=== PATIENT | male | born 1940 | race Caucasian/White ===

== ENCOUNTER 2017-02-05 16:59 | Emergency (ER) | payer MEDICARE, OTHER ==
[~2017-02-05 16:59] MED LIST: ACET500CAP PO; ASAB PO; BUM1 PO; C1 PO; CARD60 PO; CEFT5 PO; COMBIVENT RESPIM4 GM INH; COREG12 PO; COREG25 PO; COUMADIN3 MG PO; COUMADIN4 MG PO; COZ25 PO; DORYX100 MG PO; DUONEB INH; GLUCOTROL5 PO; KLOR-CON 1010 MEQ PO; L40 PO; LAN125 PO; LEVAQUIN750 MG PO; LEVEMIR SC; LIPITOR40 PO; MCZ125 PO; NEXIUM40 PO; NITROSTAT0.4 MG SL; NORCO1 TAB PO; P20 PO; POT GLUCONAT550 M1 PO; PRIN5 PO; XARELTO20 MG PO; ZITH250 PO
[2017-02-05 19:33] LABS: ASCORBIC ACID (UR NOT ORDER) NEG (NEG); BILIRUBIN, URINE NEGATIVE (NEG); ER URINALYSIS TAT 0 Hrs 13 Mins; KETONE, URINE NEGATIVE (NEG); LEUKOCYTE ESTERASE(NOT OR TRACE (NEG); NITRITE (URINE) NEG (NEG); WBC (NOT ORDERED) (RFLEX) 1 (0-5)
[2017-02-05 19:39] LABS: BASOPHILS 0.3 %; BASOPHILS ABSOLUTE 0.03 10/3/uL (0.0-0.16); EOSINOPHILS 1.4 %; EOSINOPHILS ABSOLUTE 0.14 10/3/uL (0.0-0.53); ER CBC TAT 0 Hrs 19 Mins; HEMATOCRIT 40.9 % (40.0-51.0); HEMOGLOBIN 14.6 g/dL (13.6-17.8); IMMATURE GRANULOCYTES 0.2 %; IMMATURE GRANULOCYTES ABSOLUTE 0.02 10/3/uL (0.0-0.11); LYMPHOCYTES 21.5 %; LYMPHOCYTES ABSOLUTE 2.11 10/3/uL (0.67-4.30); MEAN CORPUS HGB CONC 35.7 g/dL (32.0-36.0); MEAN CORPUSCULAR HEMOGLOB 31.9 pg (26.0-34.0); MEAN PLATELET VOLUME 10.9 fL (9.2-13.0); MONOCYTES 11.2 %; NEUTROPHILS 65.4 %; NEUTROPHILS ABSOLUTE 6.42 10/3/uL (2.02-8.40); PLATELET COUNT 177 10/3/uL (150-400); RBC DISTRIBUTION WIDTH 12.7 % (12.0-16.0); RED CELL COUNT 4.57 10/6/uL (4.7-6.1); WHITE BLOOD CELLS 9.8 10/3/uL (4.5-10.5)
[2017-02-05 19:40] LABS: MANUAL DIFF NO %; MEAN CORPUSCULAR VOLUME 89.5 fL (80-100)
[2017-02-05 19:45] LABS: BUN (BLOOD UREA NITROGEN) 14 MG/DL (6-23); CALCIUM, SERUM 8.6 MG/DL (8.5-10.4); CHLORIDE, SERUM 96 MMOL/L (96-112); CO2 (CARBON DIOXIDE) 33 MMOL/L (24-34); GFR AFRICAN AMERICAN 56 ML/MIN (>=60); GFR NON AFRICAN AMERICAN 48 ML/MIN (>=60); GLUCOSE, SERUM 320 MG/DL (60-99); POTASSIUM, SERUM 4.3 MMOL/L (3.5-5.3); SODIUM, SERUM 137 MMOL/L (135-148); TROPONIN I 0.05 NG/ML (<0.05)
== END 2017-02-05 21:52 | disposition home or self-care (01) ==
LOC: ER 16:59
PROVIDERS: Emergency Medicine
DX: E11.65 Type 2 diabetes mellitus with hyperglycemia (principal); N39.0 Urinary tract infection, site not specified; R79.89 Other specified abnormal findings of blood chemistry; J44.9 Chronic obstructive pulmonary disease, unspecified; I12.9 Hypertensive chronic kidney disease with stage 1 through stage 4 chronic kidney disease, or unspecified chronic kidney disease; N18.9 Chronic kidney disease, unspecified; I48.91 Unspecified atrial fibrillation; K21.9 Gastro-esophageal reflux disease without esophagitis; Z87.01 Personal history of pneumonia (recurrent); Z95.810 Presence of automatic (implantable) cardiac defibrillator; Z86.73 Personal history of transient ischemic attack (TIA), and cerebral infarction without residual deficits; Z85.118 Personal history of other malignant neoplasm of bronchus and lung; Z87.891 Personal history of nicotine dependence; Z88.0 Allergy status to penicillin; Z88.5 Allergy status to narcotic agent; Z88.6 Allergy status to analgesic agent; Z79.4 Long term (current) use of insulin; Z79.899 Other long term (current) drug therapy
CPT/HCPCS: 80048; 81001; 82962; 83036; 84484; 85025; 99285